=== PATIENT | female | born 1990 | race Caucasian/White ===

== ENCOUNTER 2020-07-22 00:05 | Emergency (ER) | payer BC ==
[~2020-07-22] VITALS: Ht 160 cm; Wt 55.3 kg
[2020-07-22 00:31] VITALS: BP 135/92
[2020-07-22] MEDS ORDERED: TRAM50TA2 PO (01:04)
[2020-07-22] MEDS ORDERED: SULF1TAB48 PO (01:04)
[2020-07-22] MEDS ORDERED: CLIN300C12 PO (01:04)
== END 2020-07-22 01:26 | disposition home or self-care (01) ==
LOC: ER 00:09
DX: L03.116 Cellulitis of left lower limb (principal); E03.9 Hypothyroidism, unspecified; Z60.2 Problems related to living alone